=== PATIENT | male | born 1950 | race African-American/Black ===

== ENCOUNTER 2016-09-06 19:26 | Emergency (ER) | payer OTHER, MEDICARE ==
[~2016-09-06] VITALS: Ht 175.3 cm; Wt 110.7 kg
[2016-09-06 19:34] VITALS: BP 160/90
[2016-09-06] MEDS ORDERED: BACITRACIN TOP OINT 1 UD PKG TOP ONE (20:15)
[2016-09-06] MEDS ORDERED: LIDOCAINE 1% HCL (LOCAL ANESTH.) INJ 20ML MDV IJ ONE (20:15)
[2016-09-06] MEDS ORDERED: TETANUS-DIPTH-ACEL PERTUSSIS 0.5ML SYRG IM ONE (21:00)
[2016-09-06] MEDS ORDERED: traMADol HCL 50 MG TAB PO ONE (22:15)
== END 2016-09-06 22:49 | disposition home or self-care (01) ==
LOC: EDBD 19:26 → ER 19:35
DX: S91.311A Laceration without foreign body, right foot, initial encounter (principal); S90.31XA Contusion of right foot, initial encounter; E11.9 Type 2 diabetes mellitus without complications; Z85.46 Personal history of malignant neoplasm of prostate; W22.8XXA Striking against or struck by other objects, initial encounter; Y93.89 Activity, other specified; Y99.8 Other external cause status; Y92.89 Other specified places as the place of occurrence of the external cause
CPT/HCPCS: 12002; 73620; 99284; J2001; L3260